=== PATIENT | female | born 1980 | race Caucasian/White ===

== ENCOUNTER → 2016-04-02 | Outpatient (CLI) | payer OTHER ==
--- NOTE | 2016-04-02 15:07 | MR ---
EXAMINATION TYPE: MR cervical spine wo con DATE OF EXAM: 04/02/2016 12:24 PM COMPARISON: NONE HISTORY: Migraines, neck pain TECHNIQUE: Multiplanar, multisequence images of the cervical spine were acquired. C2-C3: No evidence for degenerative disc disease. No disc bulge/herniation or protrusion. No Canal stenosis. Foramina are patent bilaterally. C3-C4: No evidence for degenerative disc disease. No disc bulge/herniation or protrusion. No Canal stenosis. Foramina are patent bilaterally. C4-C5: No evidence for degenerative disc disease. Mild posterocentral disc bulge without herniation o r protrusion. No Canal stenosis. Foramina are patent bilaterally. C5-C6: Mild decreased signal and loss of height compatible with degenerative disc disease. Mild poste rior central disc herniation with mild effacement ventral thecal sac and minimal ventral CORD contact . No evidence for central stenosis. C6-C7: No evidence for degenerative disc disease. No disc bulge/herniation or protrusion. No Canal stenosis. Foramina are patent bilaterally. C7-T1: No evidence for degenerative disc disease. No disc bulge/herniation or protrusion. No Canal stenosis. Foramina are patent bilaterally. Herniations at T2-3 and T3-4 would be difficult to exclude on this study. Consider dedicated evaluati on of the thoracic spine. Cervical segments are intact. There is normal alignment. Mild increased signal within the cervical s arielle cord at C5-6 and T3-4 suggested. Craniovertebral junction relationships are within normal limit s. IMPRESSION: 1. Degenerative disc disease as discussed. 2. Disc herniation mild in degree at C5-6 with ventral CORD contact and early compressive myelopathy difficult to exclude. 3. Disc herniation suspected upper thoracic spine particularly at T3-4 with ventral CORD contact and possible additional compressive myelopathy. Consider dedicated evaluation of the thoracic spine.
== END | disposition home or self-care (01) ==
LOC: RADMRIMAIN 12:00
PROVIDERS: ATTEND Psychiatry & Neurology Neurology
DX: M50.30 Other cervical disc degeneration, unspecified cervical region (principal); M50.222 Other cervical disc displacement at C5-C6 level; G43.009 Migraine without aura, not intractable, without status migrainosus
CPT/HCPCS: 72141

== ENCOUNTER → 2016-04-12 | Outpatient (CLI) | payer OTHER ==
--- NOTE | 2016-04-14 08:36 | MR ---
EXAMINATION TYPE: MR thoracic spine wo con DATE OF EXAM: 04/12/2016 12:29 PM COMPARISON: NONE HISTORY: Intervertebral disc displacement, thoracic Standard multiplanar, multisequence MRI departmental protocol Multiplanar, multisequence images of the thoracic spine were acquired. Diffusion weighted imaging was performed. FINDINGS: Note is made that there are technical difficulties with the MRI unit which limits the exam. Loss of disc signal is noted throughout sagittal sequences. Patient still requests preliminary repor t. L1-L2 there is a left paracentral disc herniation. Effacement of thecal sac and left-sided foraminal encroachment. There is no displacement of the spinal cord however there is anterior contact of the le ft anterior lateral margin of the cord. At T2-T3 there is a small focal central disc herniation which encroaches upon the anterior margin the spinal cord. No displacement. Neural foramina patent. On the sagittal images is a findings suspicious for disc herniation at T9-T10. However this is the ar ea of particular limitation due to technical failure of the magnet. Resolution on axial images are no t adequate to confirm. Versus sagittal images are highly suspicious. Assessment spinal cord is limited due to motion artifact. No obvious areas of abnormal signal within the upper and mid thoracic spine:. Alignment is anatomic. The signal is preserved exception of T9-T10 compatible with mild degenerative disc disease. No compression deformities. Assessment paraspinal structures for abnormal signals limited. IMPRESSION: Limited exam due to technical failure of the MRI unit. However, findings are compatible with disc her niations at T1-T2 and T2-T3 which encroach and partially touch the anterior margin the spinal cord wi th no compression or displacement. Left-sided foraminal encroachment at T1-T2 noted. Particular limitation exam at the level of the mid and lower thoracic spine secondary to poor resolut ion from technical difficulties. A disc herniation at T9-T10 is suspected based on the sagittal local izing image. The exam could be repeated at no additional constipation for confirmation.
== END | disposition home or self-care (01) ==
LOC: RADMRIMAIN 11:01
PROVIDERS: ATTEND Psychiatry & Neurology Neurology
DX: M51.24 Other intervertebral disc displacement, thoracic region (principal); R93.7 Abnormal findings on diagnostic imaging of other parts of musculoskeletal system
CPT/HCPCS: 72146

== ENCOUNTER → 2016-05-01 | Outpatient (CLI) | payer OTHER ==
--- NOTE | 2016-05-01 13:50 | MR ---
EXAMINATION TYPE: MR lumbar spine wo con DATE OF EXAM: 05/01/2016 1:02 PM COMPARISON: NONE HISTORY: spondylosis lsp and low back pain per order. Pain for 1+ years causing pain and tingling in bilateral extremities per patient. TECHNIQUE: Multiplanar, multisequence imaging of the lumbar spine is performed without IV contrast. FINDINGS: Sagittal images of the lumbar spine show vertebral body heights and alignment to appear sat isfactory. There is multilevel disc desiccation from L2-L3 through L4-L5 levels. There is mild disc space narrowing L2-L3 and L3-L4 levels. Posterior disc herniations are seen at L2-L3 and L4-L5 levels on sagittal images. Increased signal posteriorly consistent with annular tear is noted at L3-L4 leve l. The conus medullaris is slightly lower in position ending at L1-L2 disc space. No suspicious clump ing of lumbosacral nerve roots is seen. The bone marrow signal intensity is within normal limits. No significant spurring is noted. Axial images show the T12-L1 and L1-L2 levels to appear within normal limits. Axial images at L2-L3 level show focal central disc protrusion on axial image 18 mildly effacing ante rior thecal sac, this measures 6 to 7 mm transversely on this image, bilateral neural foramina remain patent. Axial images at the L3-L4 level show mild broad based posterior disc protrusion minimally effacing an terior thecal sac, bilateral neural foramina remain patent. Axial images at L4-L5 level show broad-based central disc protrusion mildly effacing the anterior the twin sac slightly more pronounced right of midline seen best on axial image 8. Bilateral neural forami na remain patent. Mild facet arthropathy bilaterally at this level is seen. Axial images at L5-S1 level show mild facet arthropathy, spinal canal is preserved and bilateral neur al foramina are patent. There is partial visualization of tiny normal follicles in the left ovary. Adjacent to posterior port ion of ovary medially immediately posterior to the uterine fundus there is more round 2.1 x 1.8 cm le rosi isointense to uterus and ovary on T1-weighted images but slightly hyperintense to uterus and ova yasmani tissue on the T2-weighted images. Differential includes subserosal exophytic fibroid, as well as ovarian nonsimple exophytic cystic lesion such as hemorrhagic cyst, exophytic solid ovarian lesion i s not excluded. Pelvic ultrasound follow-up is advised. IMPRESSION: 1. Multilevel degenerative changes in the mid to lower cervical spine as detailed above. Most promine nt disc herniations are noted L2-L3 and L4-L5 levels. 2. Nonsimple lesion left upper pelvis as detailed above, pelvic ultrasound follow-up advised.
== END | disposition home or self-care (01) ==
LOC: RADMRIMAIN 12:02
PROVIDERS: ATTEND Neurological Surgery
DX: M47.816 Spondylosis without myelopathy or radiculopathy, lumbar region (principal); M51.26 Other intervertebral disc displacement, lumbar region
CPT/HCPCS: 72148

== ENCOUNTER → 2016-05-01 | Outpatient (CLI) | payer OTHER ==
--- NOTE | 2016-05-01 14:05 | US ---
EXAMINATION TYPE: US extremity nonvasc mass LT DATE OF EXAM: 05/01/2016 1:37 PM COMPARISON: NONE CLINICAL HISTORY: R22.32 palpable mass. At the site of patient's palpable abnormality in the left forearm ultrasound was performed. No solid or cystic mass was evident. IMPRESSION: No abnormalities evident. CT or MRI with overlying palpable marker could be performed fo r additional evaluation as indicated
== END | disposition home or self-care (01) ==
LOC: RADUSMAIN 12:46
PROVIDERS: ATTEND Family Medicine
DX: R22.32 Localized swelling, mass and lump, left upper limb (principal)

== ENCOUNTER → 2016-05-01 | Outpatient (CLI) | payer OTHER ==
[2016-05-01 13:58] LABS: Basophils # (A) 0.1 k/uL (0-0.2); Basophils % (A) 1 %; CH 27.5; CHCM 32.5; Eosinophils # (A) 0.5 k/uL (0-0.7); Eosinophils % (A) 5 %; HCT 43.7 % (34.0-46.0); HDW 2.78; HGB 13.8 gm/dL (11.4-16.0); Luc # (Auto) 0.17; Luc % (Auto) 2; Lymphocytes # (A) 2.9 k/uL (1.0-4.8); Lymphocytes % (A) 29 %; MCH 26.8 pg (25.0-35.0); MCHC 31.5 g/dL (31.0-37.0); MCV 85.1 fL (80.0-100.0); Mean Platelet Volume 6.5; Monocytes # (A) 0.5 k/uL (0-1.0); Monocytes % (A) 4 %; Neutrophils # (A) 6.1 k/uL (1.3-7.7); Neutrophils % (A) 60 %; RBC 5.13 m/uL (3.80-5.40); RDW 14.1 % (11.5-15.5); WBC 10.2 k/uL (3.8-10.6); WBC (Perox) 10.35
[2016-05-01 15:06] LABS: ALT 28 U/L (9-52); AST 15 U/L (14-36); Alkaline Phosphatase 53 U/L (38-126); Anion Gap 8 mmol/L; Blood Urea Nitrogen 10 mg/dL (7-17); C Reactive Protein 5.7 mg/L (<10.0); Calcium 9.8 mg/dL (8.4-10.2); Carbon Dioxide 23 mmol/L (22-30); Chloride 110 mmol/L (98-107); Glucose 90 mg/dL (74-99); Non-African American GFR(MDRD) >60 (>60 ml/min/1.73 sqM); Potassium 4.2 mmol/L (3.5-5.1); Sodium 141 mmol/L (137-145); Total Bilirubin 0.3 mg/dL (0.2-1.3); Total Protein 6.7 g/dL (6.3-8.2); Uric Acid 5.1 mg/dL (3.7-7.4)
[2016-05-01 15:07] LABS: Rheumatoid Factor, Qnt <9 IU/mL (<12)
[2016-05-01 19:10] LABS: Erythrocyte Sedimentation Rate 8 mm/hr (0-20)
== END | disposition home or self-care (01) ==
LOC: LABWHC1 13:35
PROVIDERS: ATTEND Family Medicine
DX: M25.50 Pain in unspecified joint (principal); E03.9 Hypothyroidism, unspecified
CPT/HCPCS: 36415; 80053; 84443; 84550; 85025; 85652; 86038; 86140; 86431

== ENCOUNTER → 2016-05-17 | Outpatient (CLI) | payer OTHER ==
--- NOTE | 2016-05-18 11:53 | US ---
EXAMINATION TYPE: US pelvic complete DATE OF EXAM: 05/17/2016 4:08 PM COMPARISON: No previous CLINICAL HISTORY: Pelvic Lesion M99.85. Pelvic pain, irregular heavy cycles, 2, para 2 TECHNIQUE: Transvaginal (TV) and Transabdominal (TA) Date of LMP: 05/11/16 EXAM MEASUREMENTS: Uterus: 9.5 x 4.7 x 5.8 cm Endometrial Stripe: 0.4 cm Right Ovary: not seen Left Ovary: not seen TECHNOLOGIST IMPRESSION: 1. Uterus: anteverted, heterogeneous without any definite lesions seen at this time 2. Endometrium: measures wnl for patient's LMP, IUD seen within endo appears to be slightly low with in lower uterine segment/cervix 3. Right Ovary: not seen due to overlying bowel 4. Left Ovary: not seen due to overlying bowel 5. Bilateral Adnexa: wnl 6. Posterior cul-de-sac: wnl IMPRESSION: 1. IUD identified within the uterus. This is in the lower uterine segment
== END ==
LOC: RADUSWWP 15:36
PROVIDERS: ATTEND Family Medicine
DX: M99.85 Other biomechanical lesions of pelvic region (principal); Z97.5 Presence of (intrauterine) contraceptive device
CPT/HCPCS: 76830; 76856

== ENCOUNTER → 2016-06-25 | Outpatient (CLI) | payer OTHER ==
--- NOTE | 2016-06-25 21:47 | XR ---
EXAMINATION TYPE: XR chest 2V DATE OF EXAM: 06/25/2016 6:47 PM COMPARISON: NONE TECHNIQUE: PA and lateral views submitted. HISTORY: Sternal pain FINDINGS: The lungs are clear and there is no pneumothorax, pleural effusion, or focal pneumonia. If there is concern for sternal abnormality recommend dedicated sternal series. IMPRESSION: 1. No acute process.
== END ==
LOC: RADXRMAIN 18:19
PROVIDERS: ATTEND Allergy & Immunology
DX: R06.02 Shortness of breath (principal); R61 Generalized hyperhidrosis; R23.2 Flushing; R21 Rash and other nonspecific skin eruption; R20.2 Paresthesia of skin; R42 Dizziness and giddiness; R19.7 Diarrhea, unspecified; R53.1 Weakness; M79.1 Myalgia
CPT/HCPCS: 71020

== ENCOUNTER → 2016-07-17 | Outpatient (CLI) | payer OTHER ==
[2016-07-17 11:25] LABS: C Reactive Protein <5.0 mg/L (<10.0)
[2016-07-17 12:10] LABS: Vitamin B12 387 pg/mL (239-931)
[2016-07-19 04:02] LABS: Complement Total (CH50) 166 CAE (54-144)
[2016-07-23 20:15] LABS: Mercury Whole Blood < 2 mcg/L (< 11)
== END | disposition home or self-care (01) ==
LOC: LABWHC1 09:11
PROVIDERS: ATTEND Allergy & Immunology
DX: R61 Generalized hyperhidrosis (principal); R23.2 Flushing; R21 Rash and other nonspecific skin eruption; R20.2 Paresthesia of skin; R06.02 Shortness of breath; M25.50 Pain in unspecified joint; M79.1 Myalgia; R53.1 Weakness; R19.7 Diarrhea, unspecified; R42 Dizziness and giddiness
CPT/HCPCS: 36415; 82175; 82306; 82530; 82570; 82607; 82785; 83520; 83655; 83825; 84165; 86140; 86162

== ENCOUNTER → 2016-08-20 | Outpatient (CLI) | payer OTHER ==
--- NOTE | 2016-08-20 14:19 | XR ---
EXAMINATION TYPE: XR chest 2V DATE OF EXAM: 08/20/2016 COMPARISON: Prior chest x-ray 06/25/2016 HISTORY: Lung left medial chest, chest pain TECHNIQUE: Frontal and lateral views of the chest are obtained. FINDINGS: There is no focal air space opacity, pleural effusion, or pneumothorax seen. The cardiac silhouette size is within normal limits. The osseous structures are intact. IMPRESSION: No acute cardiopulmonary process.
== END ==
LOC: RADXRMAIN 13:51
PROVIDERS: ATTEND Allergy & Immunology
DX: R07.9 Chest pain, unspecified (principal); F17.200 Nicotine dependence, unspecified, uncomplicated; R22.9 Localized swelling, mass and lump, unspecified
CPT/HCPCS: 71020

== ENCOUNTER → 2016-08-21 | Outpatient (CLI) | payer OTHER ==
--- NOTE | 2016-08-21 20:16 | CT ---
EXAMINATION TYPE: CT abdomen pelvis w con DATE OF EXAM: 08/21/2016 COMPARISON: NONE HISTORY: Generalized hyperhidrosis. CT DLP: 2589.20 mGycm Automated exposure control for dose reduction was used. TECHNIQUE: Helical acquisition of images was performed from the lung bases through the pelvis. CONTRAST: Performed with Oral Contrast and with IV Contrast, patient injected with 100 mL of Omnipaque 300. FINDINGS: Lung bases are clear. There is no pleural effusion. Heart size is normal. Liver spleen pancreas gallbladder appear normal. Bile ducts are not dilated. There is no adrenal mass . Kidneys show satisfactory contrast opacification. There is no hydronephrosis. There is no retroperi toneal adenopathy. Appendix appears normal. I see no intestinal wall thickening. There are no dilated loops. IUD is noted in the uterus. There is no sign of a pelvic mass. Bladder distends smoothly. The re is no free fluid. I see no bony destructive process. Uterus is anteverted. IMPRESSION: NORMAL CT SCAN OF THE ABDOMEN AND PELVIS.
== END | disposition home or self-care (01) ==
LOC: RADCTMAIN 17:40
PROVIDERS: ATTEND Allergy & Immunology
DX: T78.2XXD Anaphylactic shock, unspecified, subsequent encounter (principal); R61 Generalized hyperhidrosis; R09.89 Other specified symptoms and signs involving the circulatory and respiratory systems
CPT/HCPCS: 74177; Q9967

== ENCOUNTER → 2017-06-19 | Outpatient (CLI) | payer OTHER ==
[2017-06-19 11:11] LABS: Basophils # (A) 0.1 k/uL (0-0.2); Basophils % (A) 1 %; Eosinophils # (A) 0.6 k/uL (0-0.7); Eosinophils % (A) 7 %; HCT 43.8 % (34.0-46.0); HGB 14.5 gm/dL (11.4-16.0); Lymphocytes # (A) 2.2 k/uL (1.0-4.8); Lymphocytes % (A) 25 %; MCH 27.6 pg (25.0-35.0); MCHC 33.1 g/dL (31.0-37.0); MCV 83.5 fL (80.0-100.0); Mean Platelet Volume 6.6; Monocytes # (A) 0.4 k/uL (0-1.0); Monocytes % (A) 5 %; Neutrophils # (A) 5.5 k/uL (1.3-7.7); Neutrophils % (A) 62 %; Platelet Count 386 k/uL (150-450); RBC 5.24 m/uL (3.80-5.40); RDW 13.5 % (11.5-15.5); WBC 8.9 k/uL (3.8-10.6)
[2017-06-19 11:26] LABS: ALT 21 U/L (9-52); AST 14 U/L (14-36); Albumin 3.9 g/dL (3.5-5.0); Alkaline Phosphatase 56 U/L (38-126); Amylase 46 U/L (30-110); Anion Gap 10 mmol/L; Blood Urea Nitrogen 13 mg/dL (7-17); Calcium 9.7 mg/dL (8.4-10.2); Carbon Dioxide 28 mmol/L (22-30); Chloride 105 mmol/L (98-107); Glucose 96 mg/dL (74-99); Lipase 148 U/L (23-300); Potassium 4.8 mmol/L (3.5-5.1); Sodium 143 mmol/L (137-145); Total Bilirubin 0.2 mg/dL (0.2-1.3); Total Protein 6.4 g/dL (6.3-8.2)
--- NOTE | 2017-06-19 13:06 | US ---
EXAMINATION TYPE: US abdomen complete DATE OF EXAM: 06/19/2017 COMPARISON: NONE CLINICAL HISTORY: 36-year-old female with R10.84 abdominal pain. Bloating, abdominal pain, indigestio n, diarrhea Technique: Multiple sonographic images of the abdomen are obtained. FINDINGS: Liver Length: 18.0 cm Gallbladder Wall: 0.2 cm CBD: 0.3 cm Spleen: 10.8 cm Right Kidney: 12.0 x 3.5 x 6.5 cm Left Kidney: 12.5 x 5.4 x 4.7+ cm Green Building Design Specialist notes: Technical limitations due to patient's body habitus and large amount of overlying bowel content Pancreas: limited evaluation due to overlying bowel content. Only a small portion of the pancreatic neck is seen. Liver: Mildly enlarged without focal lesion seen. Gallbladder: No abnormal gallbladder distention, wall thickening, pericholecystic fluid, or shadowin g calculi. Evidence for sonographic Beckett's sign: no CBD: appears wnl Spleen: wnl Right Kidney: no evidence of hydronephrosis. Left Kidney: no evidence of hydronephrosis. Upper IVC: wnl Abd Aorta: wnl IMPRESSION: 1. Mild hepatomegaly (18.0 cm). Correlate to exclude any nonspecific hepatocellular disease. 2. Suboptimal visualization of the pancreas. Otherwise, unremarkable exam of the abdomen.
[2017-06-19 18:27] LABS: Hemoglobin A1C 5.3 % (4.0-6.0)
== END | disposition home or self-care (01) ==
LOC: RADUSWWP 09:41
PROVIDERS: ATTEND Family Medicine
DX: R16.0 Hepatomegaly, not elsewhere classified (principal); R10.84 Generalized abdominal pain
CPT/HCPCS: 36415; 76700; 80053; 82150; 83036; 83690; 85025

== ENCOUNTER → 2017-06-26 | Outpatient (CLI) | payer OTHER ==
[2017-06-26 13:03] LABS: Basophils # (A) 0.1 k/uL (0-0.2); Basophils % (A) 1 %; Eosinophils # (A) 0.6 k/uL (0-0.7); Eosinophils % (A) 7 %; HCT 42.9 % (34.0-46.0); HGB 14.3 gm/dL (11.4-16.0); Lymphocytes # (A) 2.3 k/uL (1.0-4.8); Lymphocytes % (A) 25 %; MCH 27.5 pg (25.0-35.0); MCHC 33.4 g/dL (31.0-37.0); MCV 82.3 fL (80.0-100.0); Mean Platelet Volume 6.5; Monocytes # (A) 0.4 k/uL (0-1.0); Monocytes % (A) 5 %; Neutrophils # (A) 5.4 k/uL (1.3-7.7); Neutrophils % (A) 61 %; Platelet Count 368 k/uL (150-450); RBC 5.21 m/uL (3.80-5.40); RDW 13.4 % (11.5-15.5); WBC 8.9 k/uL (3.8-10.6)
[2017-06-26 13:19] LABS: ALT 22 U/L (9-52); AST 15 U/L (14-36); Albumin 3.8 g/dL (3.5-5.0); Alkaline Phosphatase 52 U/L (38-126); Anion Gap 11 mmol/L; Blood Urea Nitrogen 14 mg/dL (7-17); Calcium 10.1 mg/dL (8.4-10.2); Carbon Dioxide 28 mmol/L (22-30); Chloride 103 mmol/L (98-107); Glucose 85 mg/dL (74-99); Potassium 4.7 mmol/L (3.5-5.1); Sodium 142 mmol/L (137-145); Total Bilirubin 0.4 mg/dL (0.2-1.3); Total Protein 6.3 g/dL (6.3-8.2)
[2017-06-26 14:19] LABS: T4, Free (Free Thyroxine) 1.05 ng/dL (0.78-2.19)
[2017-06-26 21:21] LABS: Rheumatoid Factor <4 IU/mL (0-15)
[2017-06-27 01:54] LABS: Cyclic Citrullinated Pep IgG NEGATIVE (NEGATIVE)
== END | disposition home or self-care (01) ==
LOC: LABWHC1 11:59
PROVIDERS: ATTEND Family Medicine
DX: L82.1 Other seborrheic keratosis (principal); M25.50 Pain in unspecified joint; R10.84 Generalized abdominal pain
CPT/HCPCS: 36415; 80053; 84439; 84443; 85025; 86038; 86200; 86431

== ENCOUNTER 2018-07-08 13:51 | Emergency (ER) | payer OTHER ==
[2018-07-08 14:01] VITALS: BP 159/107; PULSE 94; RESP 20; TEMP 99
[2018-07-08] MEDS ORDERED: SODIUM CHLORIDE 0.9% 1,000 ML IV STA (14:46)
[2018-07-08] MEDS ORDERED: KETOROLAC 30 MG/ML 1 ML VIAL IVP STA (14:46)
[2018-07-08 15:49] LABS: Basophils # (A) 0.1 k/uL (0-0.2); Basophils % (A) 1 %; Eosinophils # (A) 0.7 k/uL (0-0.7); Eosinophils % (A) 6 %; HCT 44.5 % (34.0-46.0); HGB 14.2 gm/dL (11.4-16.0); Lymphocytes # (A) 3.4 k/uL (1.0-4.8); Lymphocytes % (A) 26 %; MCH 27.1 pg (25.0-35.0); MCV 84.8 fL (80.0-100.0); Mean Platelet Volume 6.9; Monocytes # (A) 0.5 k/uL (0-1.0); Monocytes % (A) 4 %; Neutrophils # (A) 8.2 k/uL (1.3-7.7); Neutrophils % (A) 63 %; Platelet Count 434 k/uL (150-450); RBC 5.25 m/uL (3.80-5.40); RDW 14.8 % (11.5-15.5); WBC 13.1 k/uL (3.8-10.6)
[2018-07-08 15:56] LABS: ALT 21 U/L (9-52); AST 23 U/L (14-36); Albumin 4.1 g/dL (3.5-5.0); Alkaline Phosphatase 47 U/L (38-126); Anion Gap 7 mmol/L; Blood Urea Nitrogen 10 mg/dL (7-17); Carbon Dioxide 28 mmol/L (22-30); Chloride 103 mmol/L (98-107); Glucose 82 mg/dL (74-99); Magnesium 1.7 mg/dL (1.6-2.3); Potassium 4.5 mmol/L (3.5-5.1); Sodium 138 mmol/L (137-145); Total Bilirubin 0.6 mg/dL (0.2-1.3); Total Protein 6.9 g/dL (6.3-8.2)
--- NOTE | 2018-07-08 15:56 | XR ---
EXAMINATION TYPE: XR chest 2V DATE OF EXAM: 07/08/2018 COMPARISON: 08/20/2016 HISTORY: Chest pain TECHNIQUE: Frontal and lateral views of the chest are obtained. FINDINGS: There is no focal air space opacity, pleural effusion, or pneumothorax seen. The cardiac silhouette size is within normal limits. The osseous structures are intact. IMPRESSION: No acute cardiopulmonary process.
[2018-07-08 15:58] LABS: D-Dimer 0.41 mg/L FEU (<0.60); INR 0.9 (<1.2); Partial Thromboplastin Time 25.9 sec (22.0-30.0); Prothrombin Time 9.7 sec (9.0-12.0)
--- NOTE | 2018-07-08 16:23 | ED ---
General Adult HPI - General Chief complaint: Back Pain/Injury Stated complaint: Back pain Time Seen by Provider: 07/08/18 14:13 Source: patient, RN notes reviewed, old records reviewed Mode of arrival: ambulatory Limitations: no limitations - History of Present Illness Initial comments: Patient is a 29-year-old female presents emergency department today complains of bending and causing this pain in her left shoulder and back and pain rated at her arm. Patient states that she felt like she was having some shortness of breath. Denies any specific chest pain. Patient states that she has no cardiac history. She denies any history of sick contacts. She does report pain is worse with certain movements.Patient denies any recent fever, chills, shortness of breath, chest pain, back pain, abdominal pain, nausea vomiting, numbness or tingling, dysuria or hematuria, constipation or diarrhea, headaches or visual changes, or any other current symptoms - Related Data Home Medications Medication Instructions Recorded Confirmed Albuterol Nebulized [Ventolin 2.5 mg INHALATION RT-Q4H PRN 07/08/18 07/08/18 Nebulized] Levothyroxine Sodium [Synthroid] 175 mcg PO DAILY 07/08/18 07/08/18 Previous Rx's Medication Instructions Recorded Acetaminophen Tab [Tylenol Tab] 1,000 mg PO Q6HR #20 tablet 07/08/18 Cyclobenzaprine [Flexeril] 10 mg PO HS #12 tab 07/08/18 Allergies Allergy/AdvReac Type Severity Reaction Status Date / Time ibuprofen AdvReac Nausea & Verified 07/08/18 14:23 Vomiting & Diarrhea Review of Systems ROS Statement: Those systems with pertinent positive or pertinent negative responses have been documented in the HPI. ROS Other: All systems not noted in ROS Statement are negative. Past Medical History Past Medical History: Thyroid Disorder Additional Past Medical History / Comment(s): endometriosis, hypothyroidism History of Any Multi-Drug Resistant Organisms: MRSA Date of last positivie culture/infection: 2008 MDRO Source:: neck Additional Past Surgical History / Comment(s): laproscopic surgery for endometriosis Past Psychological History: No Psychological Hx Reported Smoking Status: Current every day smoker Past Alcohol Use History: Occasional Past Drug Use History: Marijuana General Exam - General Exam Comments Initial Comments: 29-year-old female. Alert and oriented. No distress. Limitations: no limitations General appearance: alert, in no apparent distress Head exam: Present: atraumatic, normocephalic, normal inspection Eye exam: Present: normal appearance ENT exam: Present: normal exam, mucous membranes moist Neck exam: Present: normal inspection. Absent: tenderness, meningismus, lymphadenopathy Respiratory exam: Present: normal lung sounds bilaterally, other (Decided to touch over the left shoulder blade paraspinal muscles.). Absent: respiratory distress, wheezes, rales, rhonchi, stridor Cardiovascular Exam: Present: regular rate, normal rhythm, normal heart sounds. Absent: systolic murmur, diastolic murmur, rubs, gallop, clicks GI/Abdominal exam: Present: soft, normal bowel sounds. Absent: distended, tenderness, guarding, rebound, rigid Extremities exam: Present: normal inspection, full ROM, normal capillary refill. Absent: tenderness, pedal edema, joint swelling, calf tenderness Back exam: Present: normal inspection Neurological exam: Present: alert, oriented X3, CN II-XII intact Psychiatric exam: Present: normal affect, normal mood Course Vital Signs 07/08/18 13:57 Temperature 99 F Pulse Rate 94 Respiratory 20 Rate Blood Pressure 159/107 O2 Sat by Pulse 99 Oximetry EKG Findings - EKG Comments: EKG Findings:: KJ performed at 1456 shows sinus rhythm normal EKG. Ventricular rate of 84 bpm. Intervals 1:30 milliseconds. She episcopalian 92 ms. QT QTc is 374/441 ms. Medical Decision Making - Medical Decision Making Is a 37-year-old female presents emergency department today complaining of left sided back pain after movement. Sensory the towards her chest complaints of arm tingling. Some EKG is reviewed and normal. Blood work is unremarkable including d-dimer returned Kanchan. Chest x-ray is normal. Patient's is a more having muscle spasm related to her symptoms. Patient is relieved with this. She feels better after IV Toradol. We'll discharge Patient with a prescription for muscle relaxers. All questions answered. - Lab Data Result diagrams: 07/08/18 15:21 07/08/18 15:21 Lab Results 07/08/18 07/08/18 07/08/18 Range/Units 15:21 15:21 15:21 WBC 13.1 H (3.8-10.6) k/uL RBC 5.25 (3.80-5.40) m/uL Hgb 14.2 (11.4-16.0) gm/dL Hct 44.5 (34.0-46.0) % MCV 84.8 (80.0-100.0) fL MCH 27.1 (25.0-35.0) pg MCHC 32.0 (31.0-37.0) g/dL RDW 14.8 (11.5-15.5) % Plt Count 434 (150-450) k/uL Neutrophils % 63 % Lymphocytes % 26 % Monocytes % 4 % Eosinophils % 6 % Basophils % 1 % Neutrophils # 8.2 H (1.3-7.7) k/uL Lymphocytes # 3.4 (1.0-4.8) k/uL Monocytes # 0.5 (0-1.0) k/uL Eosinophils # 0.7 (0-0.7) k/uL Basophils # 0.1 (0-0.2) k/uL PT 9.7 (9.0-12.0) sec INR 0.9 (<1.2) APTT 25.9 (22.0-30.0) sec D-Dimer 0.41 (<0.60) mg/L FEU Sodium 138 (137-145) mmol/L Potassium 4.5 (3.5-5.1) mmol/L Chloride 103 (98-107) mmol/L Carbon Dioxide 28 (22-30) mmol/L Anion Gap 7 mmol/L BUN 10 (7-17) mg/dL Creatinine 0.67 (0.52-1.04) mg/dL Est GFR (CKD-EPI)AfAm >90 (>60 ml/min/1.73 sqM) Est GFR (CKD-EPI)NonAf >90 (>60 ml/min/1.73 sqM) Glucose 82 (74-99) mg/dL Calcium 10.0 (8.4-10.2) mg/dL Magnesium 1.7 (1.6-2.3) mg/dL Total Bilirubin 0.6 (0.2-1.3) mg/dL AST 23 (14-36) U/L ALT 21 (9-52) U/L Alkaline Phosphatase 47 (38-126) U/L Troponin I (0.000-0.034) ng/mL Total Protein 6.9 (6.3-8.2) g/dL Albumin 4.1 (3.5-5.0) g/dL 07/08/18 Range/Units 15:21 WBC (3.8-10.6) k/uL RBC (3.80-5.40) m/uL Hgb (11.4-16.0) gm/dL Hct (34.0-46.0) % MCV (80.0-100.0) fL MCH (25.0-35.0) pg MCHC (31.0-37.0) g/dL RDW (11.5-15.5) % Plt Count (150-450) k/uL Neutrophils % % Lymphocytes % % Monocytes % % Eosinophils % % Basophils % % Neutrophils # (1.3-7.7) k/uL Lymphocytes # (1.0-4.8) k/uL Monocytes # (0-1.0) k/uL Eosinophils # (0-0.7) k/uL Basophils # (0-0.2) k/uL PT (9.0-12.0) sec INR (<1.2) APTT (22.0-30.0) sec D-Dimer (<0.60) mg/L FEU Sodium (137-145) mmol/L Potassium (3.5-5.1) mmol/L Chloride (98-107) mmol/L Carbon Dioxide (22-30) mmol/L Anion Gap mmol/L BUN (7-17) mg/dL Creatinine (0.52-1.04) mg/dL Est GFR (CKD-EPI)AfAm (>60 ml/min/1.73 sqM) Est GFR (CKD-EPI)NonAf (>60 ml/min/1.73 sqM) Glucose (74-99) mg/dL Calcium (8.4-10.2) mg/dL Magnesium (1.6-2.3) mg/dL Total Bilirubin (0.2-1.3) mg/dL AST (14-36) U/L ALT (9-52) U/L Alkaline Phosphatase (38-126) U/L Troponin I <0.012 (0.000-0.034) ng/mL Total Protein (6.3-8.2) g/dL Albumin (3.5-5.0) g/dL - Radiology Data Radiology results: report reviewed This x-rays negative for any acute cardiac vomiting process. Disposition Clinical Impression: Pain of paraspinal muscle Disposition: HOME SELF-CARE Condition: Good Instructions (If sedation given, give patient instructions): Muscle Spasm (ED) Additional Instructions: Medication as prescribed. Follow-up with PCP. Return to emergency department if any alarming signs or symptoms occur. Prescriptions: Cyclobenzaprine [Flexeril] 10 mg PO HS #12 tab Acetaminophen Tab [Tylenol Tab] 1,000 mg PO Q6HR #20 tablet Is patient prescribed a controlled substance at d/c from ED?: No Referrals: Luis Daniel Chisholm DO [Primary Care Provider] - 1-2 days Time of Disposition: 16:54
== END 2018-07-08 17:14 | disposition home or self-care (01) ==
LOC: EC 13:51
DX: M79.18 Myalgia, other site (principal); M25.512 Pain in left shoulder; R20.2 Paresthesia of skin; E03.9 Hypothyroidism, unspecified; F17.200 Nicotine dependence, unspecified, uncomplicated; Z86.14 Personal history of Methicillin resistant Staphylococcus aureus infection; Z87.42 Personal history of other diseases of the female genital tract; Z98.890 Other specified postprocedural states; Z79.890 Hormone replacement therapy; Z88.6 Allergy status to analgesic agent; X50.1XXA Overexertion from prolonged static or awkward postures, initial encounter; Y93.89 Activity, other specified
CPT/HCPCS: 36415; 93005; 85379; 80053; 83735; 84484; 85025; 85610; 85730; 71046; 99284; 96374; 96361 ×2; J1885

== ENCOUNTER 2022-01-26 22:35 | Emergency (ER) | payer OTHER ==
[2022-01-26 23:37] LABS: Basophils # (A) 0.1 k/uL (0-0.2); Basophils % (A) 1 %; Eosinophils # (A) 0.6 k/uL (0-0.7); Eosinophils % (A) 4 %; HCT 41.8 % (34.0-46.0); HGB 13.8 gm/dL (11.4-16.0); Lymphocytes # (A) 4.5 k/uL (1.0-4.8); Lymphocytes % (A) 31 %; MCH 27.9 pg (25.0-35.0); MCHC 32.9 g/dL (31.0-37.0); MCV 84.8 fL (80.0-100.0); Mean Platelet Volume 7.3; Monocytes # (A) 0.6 k/uL (0-1.0); Monocytes % (A) 4 %; Neutrophils # (A) 8.4 k/uL (1.3-7.7); Neutrophils % (A) 58 %; Platelet Count 509 k/uL (150-450); RBC 4.93 m/uL (3.80-5.40); RDW 13.7 % (11.5-15.5); WBC 14.4 k/uL (3.8-10.6)
[2022-01-26 23:59] VITALS: PULSE 90
[2022-01-27 00:01] LABS: ALT 22 U/L (4-34); AST 24 U/L (14-36); African American GFR (CKD) >90 (>60 ml/min/1.73 sqM); Albumin 4.2 g/dL (3.5-5.0); Alkaline Phosphatase 73 U/L (38-126); Anion Gap 5 mmol/L; Blood Urea Nitrogen 13 mg/dL (7-17); Calcium 9.2 mg/dL (8.4-10.2); Carbon Dioxide 30 mmol/L (22-30); Chloride 103 mmol/L (98-107); Glucose 83 mg/dL (74-99); Non-African American GFR(CKD) 89 (>60 ml/min/1.73 sqM); Potassium 3.9 mmol/L (3.5-5.1); Sodium 138 mmol/L (137-145); Total Bilirubin 0.2 mg/dL (0.2-1.3); Total Protein 6.6 g/dL (6.3-8.2)
[2022-01-27 00:09] LABS: INR 0.9 (<1.2); Partial Thromboplastin Time 26.1 sec (22.0-30.0); Prothrombin Time 9.9 sec (9.0-12.0)
--- NOTE | 2022-01-27 00:23 | XR ---
EXAMINATION TYPE: XR chest 2V DATE OF EXAM: 01/27/2022 COMPARISON: 07/08/2018 HISTORY: Chest pain TECHNIQUE: FINDINGS: Heart and mediastinum are normal. Lungs are clear. Diaphragm is normal. Bony thorax is inta ct. IMPRESSION: Normal chest. No change.
--- NOTE | 2022-01-27 00:40 | ED ---
Chest Pain HPI - General Chief Complaint: Chest Pain Stated Complaint: Chest Pain, Upper back Pain Time Seen by Provider: 01/26/22 23:58 Source: patient Mode of arrival: wheelchair Limitations: no limitations - History of Present Illness Initial Comments: This patient is a 41-year-old woman who presents to have evaluation of left- sided chest pain. She states the pains of been coming and going for nearly 2 weeks. She indicates the costal margin on the left side. The pains are aching. She has not noted worsening or relieving factors. She did not note that to be exertional. She states that they had been getting better and then she went shopping this evening and the pains seem to be more pronounced. She does occasionally get nausea but no other associated symptoms. MD Complaint: chest pain -: week(s) Onset: during rest Pain Location: left chest Pain Radiation: none Quality: aching Consistency: intermittent Improves With: nothing Worsens With: nothing Treatments Prior to Arrival: none - Related Data Home Medications Medication Instructions Recorded Confirmed Albuterol Nebulized [Ventolin 2.5 mg INHALATION RT-Q4H PRN 07/08/18 07/08/18 Nebulized] Levothyroxine Sodium [Synthroid] 175 mcg PO DAILY 07/08/18 07/08/18 Previous Rx's Medication Instructions Recorded Acetaminophen Tab [Tylenol Tab] 1,000 mg PO Q6HR #20 tablet 07/08/18 Cyclobenzaprine [Flexeril] 10 mg PO HS #12 tab 07/08/18 Allergies Allergy/AdvReac Type Severity Reaction Status Date / Time ibuprofen AdvReac Nausea & Verified 01/26/22 22:38 Vomiting & Diarrhea Review of Systems ROS Statement: Those systems with pertinent positive or pertinent negative responses have been documented in the HPI. ROS Other: All systems not noted in ROS Statement are negative. Constitutional: Denies: fever, chills Respiratory: Denies: cough, dyspnea Cardiovascular: Reports: chest pain. Denies: palpitations, orthopnea, edema, syncope Gastrointestinal: Denies: abdominal pain, nausea, vomiting, diarrhea Genitourinary: Denies: dysuria, hematuria Musculoskeletal: Denies: back pain Skin: Denies: rash Neurological: Denies: headache, weakness EKG Findings - EKG Results: EKG: interpreted by ERMD, sinus rhythm, normal axis, normal QRS, normal ST/T, no acute changes EKG shows: tachycardia (Rate 100 bpm) Past Medical History Past Medical History: Thyroid Disorder Additional Past Medical History / Comment(s): endometriosis, hypothyroidism History of Any Multi-Drug Resistant Organisms: MRSA Date of last positivie culture/infection: 2008 MDRO Source:: neck Additional Past Surgical History / Comment(s): laproscopic surgery for endometriosis Past Psychological History: No Psychological Hx Reported Smoking Status: Current every day smoker Past Alcohol Use History: Occasional Past Drug Use History: Marijuana General Exam Limitations: no limitations General appearance: alert, in no apparent distress Head exam: Present: atraumatic, normocephalic Eye exam: Present: normal appearance. Absent: scleral icterus, conjunctival injection Respiratory exam: Present: normal lung sounds bilaterally. Absent: respiratory distress, wheezes, rales, rhonchi, stridor Cardiovascular Exam: Present: regular rate, normal rhythm, normal heart sounds. Absent: systolic murmur, diastolic murmur, rubs, gallop GI/Abdominal exam: Present: soft. Absent: distended, tenderness, guarding, rebound, rigid, mass Extremities exam: Present: normal inspection, normal capillary refill. Absent: pedal edema, calf tenderness Back exam: Present: normal inspection. Absent: CVA tenderness (R), CVA tenderness (L) Neurological exam: Present: alert Skin exam: Present: warm, dry, intact, normal color. Absent: rash Course Vital Signs 01/26/22 01/26/22 22:38 23:58 Temperature 98.6 F Pulse Rate 107 H 90 Respiratory 16 18 Rate Blood Pressure 162/94 162/96 O2 Sat by Pulse 99 99 Oximetry Disposition Clinical Impression: Chest pain Disposition: HOME SELF-CARE Condition: Good Instructions (If sedation given, give patient instructions): Chest Pain (ED) Is patient prescribed a controlled substance at d/c from ED?: No Referrals: Luis Daniel Chisholm DO [Primary Care Provider] - 1-2 days Joo Blevins MD [STAFF PHYSICIAN] - 1-2 days
[2022-01-27 00:50] VITALS: BP 148/89; RESP 14; TEMP 99.2
== END 2022-01-27 00:59 | disposition home or self-care (01) ==
LOC: EC 22:35
DX: R07.89 Other chest pain (principal); F17.200 Nicotine dependence, unspecified, uncomplicated; F12.90 Cannabis use, unspecified, uncomplicated; E07.9 Disorder of thyroid, unspecified; Z88.6 Allergy status to analgesic agent; Z79.890 Hormone replacement therapy; Z20.822 Contact with and (suspected) exposure to COVID-19
CPT/HCPCS: 36415; 71046; 80053; 84484; 85025; 85379; 85610; 85730; 87635; 93005; 99285

== ENCOUNTER 2022-03-11 20:50 | Emergency (ER) | payer OTHER ==
[2022-03-11 21:17] VITALS: TEMP 98.5
[2022-03-11] MEDS ORDERED: MORPHINE SULFATE 4 MG/ML SYRINGE IM STA (22:02)
--- NOTE | 2022-03-11 22:09 | ED ---
General Adult HPI - General Chief complaint: Extremity Problem,Nontraumatic Stated complaint: Rt arm pain/Ultrasound Time Seen by Provider: 03/11/22 21:46 Source: patient Mode of arrival: ambulatory Limitations: no limitations - History of Present Illness Initial comments: Dictation was produced using leaselock dictation software. please excuse any gr ammatical, word or spelling errors. Chief Complaint: 41-year-old female presents to the emergency department for right arm pain History of Present Illness: Patient is a 41-year-old female she presents to the emergency department for right arm pain. Patient was instructed by her primary care doctor to come to the ER to be evaluated for right upper extremity DVT. Patient had a outpatient computed tomography scan of the abdomen and pelvis. States that there was a competition during the study after the IV line with contrast blue. Patient states that her pain initially started elbow nose and wrist. Denies any numbness and paresthesias to the arm. States that most of the pain is in the wrist. Denies any trauma to the extremity. Patient reports that that computed tomography scan was performed 4 days ago. Conversation with her primary care doctor and was instructed to come to the ER for an ultrasound of the upper extremity. The ROS documented in this emergency department record has been reviewed and confirmed by me. Those systems with pertinent positive or negative responses have been documented in the HPI. All other systems are other negative and/or noncontributory. PHYSICAL EXAM: General Impression: Alert and oriented x3, not in acute distress HEENT: Normocephalic atraumatic, extra-ocular movements intact, pupils equal and reactive to light bilaterally, mucous membranes moist. Cardiovascular: Heart regular rate and rhythm Chest: Able to complete full sentences, no retractions, no tachypnea Musculoskeletal: Pulses present and equal in all extremities, no peripheral edema Motor: no focal deficits noted Neurological: CN II-XII grossly intact, no focal motor or sensory deficits noted Skin: Intact with no visualized rashes Psych: Normal affect and mood Right upper extremity: Extremity appears to be atraumatic, intact radial pulse, good cap refill, palpatory tenderness along the distal forearm and wrist. No erythema or induration, no appreciable swelling or pitting edema. ED course: 41-year-old female presents emergency department for right upper extremity pain. Vital signs upon arrival are within acceptable limits. The arm appears to be benign. Nursing notes and chart review was performed Patient reevaluated at bedside at 11:02 PM. Symptoms are suspicious for carpal tunnel syndrome. She has had carpal tunnel release done in the left upper extremity. Patient has a splint that she can use for her right upper extremity. She is told to follow-up with her primary care doctor or hand specialist that she seen for the carpal tunnel her left hand. Patient given another dose of IM analgesia for the in the right wrist. Ultrasound extremity shows no evidence of deep venous thrombosis in the right arm. Patient be discharge. Advised follow-up with primary care doctor. - Related Data Home Medications Medication Instructions Recorded Confirmed Albuterol Nebulized [Ventolin 2.5 mg INHALATION RT-Q4H PRN 07/08/18 07/08/18 Nebulized] Levothyroxine Sodium [Synthroid] 175 mcg PO DAILY 07/08/18 07/08/18 Previous Rx's Medication Instructions Recorded Acetaminophen Tab [Tylenol Tab] 1,000 mg PO Q6HR #20 tablet 07/08/18 Cyclobenzaprine [Flexeril] 10 mg PO HS #12 tab 07/08/18 Allergies Allergy/AdvReac Type Severity Reaction Status Date / Time ibuprofen AdvReac Nausea & Verified 03/11/22 21:16 Vomiting & Diarrhea Review of Systems ROS Statement: Those systems with pertinent positive or pertinent negative responses have been documented in the HPI. ROS Other: All systems not noted in ROS Statement are negative. Past Medical History Past Medical History: Thyroid Disorder Additional Past Medical History / Comment(s): endometriosis, hypothyroidism History of Any Multi-Drug Resistant Organisms: MRSA Date of last positivie culture/infection: 2008 MDRO Source:: neck Additional Past Surgical History / Comment(s): laproscopic surgery for endometriosis Past Psychological History: No Psychological Hx Reported Smoking Status: Current every day smoker Past Alcohol Use History: Occasional Past Drug Use History: Marijuana General Exam Limitations: no limitations Course Vital Signs 03/11/22 21:15 Temperature 98.5 F Pulse Rate 96 Respiratory 20 Rate Blood Pressure 167/128 O2 Sat by Pulse 98 Oximetry Disposition Clinical Impression: Wrist pain Disposition: HOME SELF-CARE Condition: Good Instructions (If sedation given, give patient instructions): Wrist Injury (ED) Is patient prescribed a controlled substance at d/c from ED?: No Referrals: Luis Daniel Chisholm DO [Primary Care Provider] - 1-2 days Time of Disposition: 23:06
--- NOTE | 2022-03-11 22:51 | US ---
EXAMINATION TYPE: US venous doppler duplex UE RT DATE OF EXAM: 03/11/2022 COMPARISON: NONE CLINICAL HISTORY: pain, suspect DVT. pain in lower right arm after contrast for a CT scan 4 days ago. No hx of DVT, not on blood thinners SIDE PERFORMED: Right Right Arm: No evidence for DVT IMPRESSION: No evidence of deep vein thrombosis in the right arm.
[2022-03-11] MEDS ORDERED: HYDROmorphone 0.5 MG/0.5 ML SYRINGE IM STA (23:01)
[2022-03-11 23:11] VITALS: BP 151/103; PULSE 82; RESP 18
== END 2022-03-11 23:32 | disposition home or self-care (01) ==
LOC: EC 20:50
DX: M25.531 Pain in right wrist (principal); E07.9 Disorder of thyroid, unspecified; Z79.890 Hormone replacement therapy; F17.200 Nicotine dependence, unspecified, uncomplicated; F12.90 Cannabis use, unspecified, uncomplicated; Z88.6 Allergy status to analgesic agent
CPT/HCPCS: 93971; 99284; 96372 ×2; J2270; J1170

== ENCOUNTER 2022-06-15 21:26 | Inpatient (IN) | payer MEDICAID, OTHER ==
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
[2022-06-15] MEDS ORDERED: LORazepam 0.5 MG TAB PO STA (22:06)
[2022-06-15 23:25] LABS: Amphetamine Screen,Urine Not Detected (NotDetected); Barbiturate Screen,Urine Not Detected (NotDetected); Benzodiazepines Screen,Urine Not Detected (NotDetected); Cocaine Screen,Urine Not Detected (NotDetected); Methadone Screen, Urine Not Detected (NotDetected); Opiate Screen,Urine Not Detected (NotDetected); Oxycodone Screen, Urine Not Detected (NotDetected); Phencyclidine Screen,Urine Not Detected (NotDetected); Tricyclic Antidepressant,Urine Not Detected (NotDetected); Urn Cannabinoid Scrn Detected (NotDetected)
[2022-06-16] MEDS ORDERED: ACETAMINOPHEN TAB 325 MG TAB PO PRN (02:56)
[2022-06-16] MEDS ORDERED: MAG HYDROX/AL HYDROX/SIMETH 30 ML CUP PO PRN (02:56)
[2022-06-16] MEDS ORDERED: HALOPERIDOL LACTATE 5 MG/ML 1 ML VIAL IM PRN (02:56)
[2022-06-16] MEDS ORDERED: MAGNESIUM HYDROXIDE 2,400 MG/10 ML CUP PO PRN (02:56)
[2022-06-16] MEDS ORDERED: LORazepam 2 MG/ML INJ IM PRN (03:00)
[2022-06-16] MEDS ORDERED: haloperidoL 5 MG TAB PO PRN (03:00)
[2022-06-16] MEDS: LORazepam 1 MG TAB PO PRN ×2 (04:25→20:59)
[2022-06-16 05:22] LABS: Appearance,Urine Cloudy (Clear); Bacteria,Urine Occasional /hpf; Bilirubin,Urine Negative (Negative); Blood,Urine Trace (Negative); Calcium Oxalate Crystals,Urine Moderate /hpf; Color,Urine Yellow; Glucose,Urine (UA) Negative (Negative); Ketones,Urine Negative (Negative); Leukocyte Esterase,Urine Small (Negative); Mucus,Urine Many /hpf; Nitrite,Urine Negative (Negative); PH, Urine 6.5 (5.0-8.0); Protein,Urine Trace (Negative); RBC,Urine 3 /hpf (0-5); Specific Gravity,Urine 1.023 (1.001-1.035); Squamous Epithelial Cell,Urine 21 /hpf (0-4); WBC,Urine 9 /hpf (0-5)
[2022-06-16] MEDS: NICOTINE 14MG/24HR PATCH TRANSDERM SCH (05:28)
[2022-06-16] MEDS ORDERED: NICOTINE 14MG/24HR PATCH TRANSDERM SCH (09:00)
[2022-06-16] MEDS: LEVOTHYROXINE 88 MCG TAB PO SCH (09:46)
[2022-06-16 11:17] LABS: Basophils # (A) 0.1 k/uL (0-0.2); Basophils % (A) 1 %; Eosinophils # (A) 0.5 k/uL (0-0.7); Eosinophils % (A) 5 %; HCT 44.6 % (34.0-46.0); HGB 14.6 gm/dL (11.4-16.0); Lymphocytes # (A) 2.8 k/uL (1.0-4.8); Lymphocytes % (A) 26 %; MCHC 32.7 g/dL (31.0-37.0); MCV 82.5 fL (80.0-100.0); Mean Platelet Volume 7.4; Monocytes # (A) 0.5 k/uL (0-1.0); Monocytes % (A) 5 %; Neutrophils # (A) 6.7 k/uL (1.3-7.7); Neutrophils % (A) 62 %; Platelet Count 369 k/uL (150-450); RBC 5.41 m/uL (3.80-5.40); RDW 14.2 % (11.5-15.5); WBC 10.9 k/uL (3.8-10.6)
[2022-06-16 11:37] LABS: ALT 28 U/L (4-34); AST 23 U/L (14-36); African American GFR (CKD) >90 (>60 ml/min/1.73 sqM); Albumin 3.8 g/dL (3.5-5.0); Alkaline Phosphatase 55 U/L (38-126); Anion Gap 5 mmol/L; Bilirubin, Delta 0.3 mg/dL (0.0-0.2); Bilirubin,Unconjugated 0.2 mg/dL (0.0-1.1); Blood Urea Nitrogen 8 mg/dL (7-17); Calcium 9.1 mg/dL (8.4-10.2); Carbon Dioxide 32 mmol/L (22-30); Chloride 103 mmol/L (98-107); Glucose 92 mg/dL (74-99); Non-African American GFR(CKD) >90 (>60 ml/min/1.73 sqM); Potassium 3.7 mmol/L (3.5-5.1); Sodium 140 mmol/L (137-145); Total Bilirubin 0.5 mg/dL (0.2-1.3); Total Protein 6.3 g/dL (6.3-8.2)
[2022-06-16] MEDS: DULoxetine HCL 60 MG CAPSULE.DR PO SCH (12:57)
[2022-06-16 16:37] LABS: Chol/HDL Ratio 5.37 Ratio; LDL Cholesterol,Calculated 109.6 mg/dL (0.0-131.0)
[2022-06-16] MEDS ORDERED: HYOSCYAMINE SULFATE 0.125 MG TAB PO PRN (17:30)
[2022-06-16] MEDS ORDERED: ONDANSETRON ODT 4 MG TAB PO PRN (18:34)
[2022-06-16] MEDS: HYOSCYAMINE SULFATE 0.125 MG TAB PO PRN (21:00)
[2022-06-17] MEDS: LORazepam 1 MG TAB PO PRN ×4 (01:38→21:48)
--- NOTE | 2022-06-17 04:01 | P.MDCNMH ---
History of Present Illness H&P Date: 06/17/22 Chief Complaint: medical evaluation 41 year old female with intermittent asthma, hypothyroid patient coming in due to depression , not currently on medications, patient see all help due to suicidal ideation. she denies any medical concerns , denies fever, chills, chest pain, SOB, nausea vomiting, abd pain , cough , URI symptoms , denies urinary or bowel habits changes she admits to smoking marijuana, and cigarette , denies any alcohol Review of Systems Pertinent positives as noted in HPI. All other systems were reviewed and are negative Past Medical History Past Medical History: Thyroid Disorder Additional Past Medical History / Comment(s): endometriosis, hypothyroidism History of Any Multi-Drug Resistant Organisms: MRSA Date of last positivie culture/infection: 2008 MDRO Source:: neck Additional Past Surgical History / Comment(s): laproscopic surgery for endo metriosis Past Psychological History: Depression Smoking Status: Current every day smoker Past Alcohol Use History: Occasional Past Drug Use History: Marijuana Medications and Allergies Home Medications Medication Instructions Recorded Confirmed Type Acetaminophen Tab [Tylenol Tab] 1,000 mg PO Q6HR #20 tablet 07/08/18 Rx Albuterol Nebulized [Ventolin 2.5 mg INHALATION RT-Q4H PRN 07/08/18 07/08/18 History Nebulized] Cyclobenzaprine [Flexeril] 10 mg PO HS #12 tab 07/08/18 Rx Levothyroxine Sodium [Synthroid] 175 mcg PO DAILY 07/08/18 07/08/18 History Allergies Allergy/AdvReac Type Severity Reaction Status Date / Time ibuprofen AdvReac Nausea & Verified 03/11/22 21:16 Vomiting & Diarrhea Physical Exam Vitals: Vital Signs Temp Pulse Resp BP Pulse Ox 06/17/22 01:35 97.8 F 101 H 15 155/101 98 Intake and Output 06/16/22 06/16/22 06/17/22 14:59 22:59 06:59 Other: Weight 120.7 kg Constitutional: No acute distress, conversant, pleasant Eyes: Anicteric sclerae, moist conjunctiva, Pupils equal round reactive to light ENMT: NC/AT Oropharynx clear, no erythema, or exudates Neck: Supple, no masses, or JVD No carotid bruits No thyromegaly Lungs: Clear to auscultation Clear to percussion Normal respiratory effort, no accessory muscle use Cardiovascular: Heart regular in rate and rhythm, No murmurs, gallops, or rubs No peripheral edema Abdominal: Soft Nontender, no guarding, rebound or rigidity Abdomen moving with respiration Normoactive bowel sounds No hepatomegaly, No splenomegaly No palpable mass No abdominal wall hernia noted Skin: Normal temperature, tone, texture, turgor No induration No subcutaneous nodules No rash, lesions No ulcers Extremities: No digital cyanosis No clubbing Pedal pulses intact and symmetrical Radial pulses intact and symmetrical No calf tenderness Psychiatric: Alert and oriented to person, place and time Appropriate affect fair judgement Neuro Muscles Strength 5/5 in all 4 extremities Sensation to light touch grossly present throughout Cranial nerves II-XII grossly intact Lymphatics: no palpable cervical or supraclavicular lymph nodes Cranial Nerve Examination - Cranial Nerves Cranial Nerve II- Optic: Intact Cranial Nerve III- Oculomotor: Intact Cranial Nerve IV- Trochlear: Intact Cranial Nerve V- Trigeminal: Intact Cranial Nerve - Abducens: Intact Cranial Nerve VII- Facial: Intact Cranial Nerve VIII- Auditory: Intact Cranial Nerve IX- Glossopharyngeal: Intact Cranial Nerve X- Vagus: Intact Cranial Nerve XI- Accessory: Intact Cranial Nerve XII- Hypoglossal: Intact Results CBC & Chem 7: 06/16/22 10:30 06/16/22 10:30 Labs: Abnormal Lab Results - Last 24 Hours (Table) 06/15/22 06/16/22 06/16/22 Range/Units 22:20 10:30 10:30 WBC 10.9 H (3.8-10.6) k/uL RBC 5.41 H (3.80-5.40) m/uL Carbon Dioxide 32 H (22-30) mmol/L Delta Bilirubin 0.3 H (0.0-0.2) mg/dL Triglycerides 221.00 H (0.00-149.00) mg/dL VLDL Cholesterol, Calc 44.20 H (5.00-40.00) mg/dL HDL Cholesterol 35.20 L (40.00-60.00) mg/dL Urine Appearance Cloudy H (Clear) Urine Protein Trace H (Negative) Urine Blood Trace H (Negative) Ur Leukocyte Esterase Small H (Negative) Urine WBC 9 H (0-5) /hpf Ur Squamous Epith Cells 21 H (0-4) /hpf Calcium Oxalate Crystal Moderate H (None) /hpf Urine Bacteria Occasional H (None) /hpf Urine Mucus Many H (None) /hpf Assessment and Plan Assessment: HYPERTENSION untreated initiate patient on amlodipine 5 mg po daily patient counseled regarding life style modification and dash diet hypothyroidism , resume levothyroxine depression and suicidal ideation , management per psych thank you for this consultation
[2022-06-17] MEDS: LEVOTHYROXINE 88 MCG TAB PO SCH (08:43)
[2022-06-17] MEDS: DULoxetine HCL 60 MG CAPSULE.DR PO SCH (08:43)
[2022-06-17] MEDS: amLODIPine 5 MG TAB PO SCH (08:43)
[2022-06-17] MEDS: NICOTINE 14MG/24HR PATCH TRANSDERM SCH (08:43)
[2022-06-17] MEDS: HYOSCYAMINE SULFATE 0.125 MG TAB PO PRN (09:24)
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
[2022-06-17] MEDS: QUEtiapine 50 MG TAB PO SCH (20:31)
[2022-06-18] MEDS: DULoxetine HCL 60 MG CAPSULE.DR PO SCH (08:33)
[2022-06-18] MEDS: LEVOTHYROXINE 88 MCG TAB PO SCH (08:33)
[2022-06-18] MEDS: NICOTINE 14MG/24HR PATCH TRANSDERM SCH (08:33)
[2022-06-18] MEDS: amLODIPine 5 MG TAB PO SCH (08:35)
--- NOTE | 2022-06-18 11:42 | P.PN ---
Progress Note - Text Progress Note Date: 06/18/22 Interval History: Patient was seen attending group and was directable and agreeable to speak with literary writer in the office.The patient reports that she is feeling better. She rates her mood 5/10 in severity with 10 being severe in regards to her depression. She reports no suicidal or homicidal ideation, intention, and/or plan. She reports no paranoia or other delusions. She denies any auditory or visual hallucinations. She reports no issues regarding her sleep or appetite. She has been adherent with her medications and denies any side effects. Mental Status Exam: General Appearance: Patient appears to be stated age is alert, directable, and cooperative. Behavior: Patient is calmly seated without any agitated behavior. Eye contact is appropriate. Speech: Patient's speech is fluent and nonpressured. Spontaneous, with normal rate and volume. Mood/Affect: Mood is "feeling better." Affect is constricted. Suicidality/Homicidality: Patient reports no suicidal or homicidal ideation. Perceptions: Patient denies any visual hallucinations and denies any auditory hallucinations Though content/process: There is no evidence of any delusional thought content and thought process is linear and goal-directed. Memory and concentration: AOX3, grossly intact for the purposes of this session Judgment and insight: Improving mildly Vital Signs Temp 97.6 F 06/18/22 01:00 Pulse 51 L 06/18/22 01:00 Resp 18 06/18/22 01:00 BP 92/53 06/18/22 01:00 Pulse Ox 95 06/18/22 01:00 FiO2 Assessment Major depressive disorder, recurrent, severe Plan: -Patient continues to meet criteria for inpatient psychiatric admission for symptom stabilization and safety. Patient has signed adult voluntary form and medication consent and was placed in patient's chart. -Medications: Continue Cymbalta 60 mg by mouth daily for depression Continue Seroquel 50 mg by mouth at bedtime for mood augmentation -When necessary Ativan and Haldol for agitation/aggression. -NRT - nicotine patch -SW on board for discharge planning. Encouraged the patient to participate in milieu.
[2022-06-18] MEDS: HYOSCYAMINE SULFATE 0.125 MG TAB PO PRN (12:45)
[2022-06-18] MEDS: LORazepam 1 MG TAB PO PRN (18:37)
[2022-06-18] MEDS: QUEtiapine 50 MG TAB PO SCH (20:43)
[2022-06-19] MEDS: LEVOTHYROXINE 88 MCG TAB PO SCH (06:41)
[2022-06-19] MEDS: amLODIPine 5 MG TAB PO SCH (08:43)
[2022-06-19] MEDS: DULoxetine HCL 60 MG CAPSULE.DR PO SCH (08:43)
[2022-06-19] MEDS: NICOTINE 14MG/24HR PATCH TRANSDERM SCH (08:44)
--- NOTE | 2022-06-19 11:02 | P.PN ---
Progress Note - Text Progress Note Date: 06/19/22 Interval History: Patient was seen attending group and was directable and agreeable to speak with financial writer in the office. Patient reports that she is feeling better. She reports good sleep however states that she is experiencing some low energy which she attributes to boredom. She is not reporting any suicidal or homicidal ideation, intention, and/or plan. She is denying any paranoia or other delusions. She has been adherent with her medication and is not endorsing any significant side effects. She reports that she is feeling anxious regarding her discharge she is concerned about all the tasks and stressors that she is to deal with in the outpatient setting. Mental Status Exam: General Appearance: Patient appears to be stated age is alert, directable, and cooperative. Behavior: Patient is calmly seated without any agitated behavior. Eye contact is appropriate. Speech: Patient's speech is fluent and nonpressured. Spontaneous, with normal rate and volume. Mood/Affect: Mood is "good, just anxious." Affect is constricted. Suicidality/Homicidality: Patient reports no suicidal or homicidal ideation. Perceptions: Patient denies any visual hallucinations and denies any auditory hallucinations Though content/process: There is no evidence of any delusional thought content and thought process is linear and goal-directed. Memory and concentration: AOX3, grossly intact for the purposes of this session Judgment and insight: Improving mildly Vital Signs Temp 97.3 F L 06/19/22 06:38 Pulse 80 06/19/22 06:38 Resp 14 06/19/22 06:38 BP 136/87 06/19/22 06:38 Pulse Ox 95 06/18/22 01:00 FiO2 Assessment Major depressive disorder, recurrent, severe Generalized Anxiety Disorder Plan: -Patient continues to meet criteria for inpatient psychiatric admission for symptom stabilization and safety. Patient has signed adult voluntary form and medication consent and was placed in patient's chart. -Medications: Increse Cymbalta to 60 mg daily and 30 mg by mouth at bedtime for depression Continue Seroquel 50 mg by mouth at bedtime for mood augmentation -When necessary Ativan and Haldol for agitation/aggression. -NRT - nicotine patch -SW on board for discharge planning. Encouraged the patient to participate in milieu.
[2022-06-19] MEDS: LORazepam 1 MG TAB PO PRN ×2 (13:32→20:06)
[2022-06-19] MEDS: QUEtiapine 50 MG TAB PO SCH (20:05)
[2022-06-19] MEDS: HYOSCYAMINE SULFATE 0.125 MG TAB PO PRN (20:05)
[2022-06-19] MEDS ORDERED: DULoxetine HCL 30 MG CAPSULE.DR PO SCH (21:00)
[2022-06-19] MEDS ORDERED: VENLAFAXINE HCL ER 75 MG CAP PO SCH (21:00)
[2022-06-20] MEDS: NICOTINE 14MG/24HR PATCH TRANSDERM SCH (08:36)
[2022-06-20] MEDS: amLODIPine 5 MG TAB PO SCH (08:37)
[2022-06-20] MEDS: LEVOTHYROXINE 88 MCG TAB PO SCH (08:37)
[2022-06-20 08:41] VITALS: BP 136/95; PULSE 100; RESP 16; TEMP 97.9
[2022-06-20] MEDS ORDERED: VENLAFAXINE HCL ER 150 MG CAP PO SCH (09:00)
[2022-06-20] MEDS: LORazepam 1 MG TAB PO PRN (10:35)
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
== END 2022-06-20 12:10 | disposition home or self-care (01) | DRG 751 ==
LOC: EC 21:26 → 3MHU 06-16 02:51
PROVIDERS: ADMIT Psychiatry & Neurology Psychiatry; ATTEND Psychiatry & Neurology Psychiatry
DX: F33.2 Major depressive disorder, recurrent severe without psychotic features (principal); R45.851 Suicidal ideations; Z20.822 Contact with and (suspected) exposure to COVID-19; Z28.310 Unvaccinated for COVID-19; J45.20 Mild intermittent asthma, uncomplicated; E03.9 Hypothyroidism, unspecified; F41.1 Generalized anxiety disorder; G47.00 Insomnia, unspecified; I10 Essential (primary) hypertension; K58.9 Irritable bowel syndrome, unspecified; N80.9 Endometriosis, unspecified; F17.210 Nicotine dependence, cigarettes, uncomplicated; Z71.6 Tobacco abuse counseling; Z79.890 Hormone replacement therapy; Z79.899 Other long term (current) drug therapy; Z86.14 Personal history of Methicillin resistant Staphylococcus aureus infection; Z62.810 Personal history of physical and sexual abuse in childhood; Z88.6 Allergy status to analgesic agent; Z81.8 Family history of other mental and behavioral disorders
CPT/HCPCS: 80053; 80061; 80306; 81001; 81025; 82075; 82248; 83036; 84443; 85025; 87635; 99285